=== PATIENT | female | born 1990 | race Caucasian/White ===

== ENCOUNTER → 2019-04-10 | Outpatient (CLI) | payer BC, OTHER ==
[~2019-04-10] MED LIST: MEDROL DOSEPAK4 MG PO; NAPROSYN500 MG PO; NKHM; PARAFON FORTE500 MG PO; SEPTDS PO; Zofran4 MG SL
== END | disposition home or self-care (01) ==
LOC: US 13:13
DX: Z34.92 Encounter for supervision of normal pregnancy, unspecified, second trimester (principal); Z3A.19 19 weeks gestation of pregnancy

== ENCOUNTER → 2019-07-12 | Outpatient (CLI) | payer BC, OTHER | END | disposition home or self-care (01) | LOC: US 16:00 | DX: Z34.83 Encounter for supervision of other normal pregnancy, third trimester (principal); Z3A.32 32 weeks gestation of pregnancy ==